=== PATIENT | male | born 1970 | race Caucasian/White ===

== ENCOUNTER 2021-01-15 03:06 | Outpatient (CLI) | payer MEDICAID, SELFPAY ==
[2021-01-15 12:51] LABS: Calculated LDL 110 mg/dL (<100); Cholesterol 171 mg/dL (<200); HDL Cholesterol 40 mg/dL (40-60); Triglyceride 109 mg/dL (<150)
[2021-01-15 17:29] LABS: PSA, Screening 0.9 ng/mL (0.0-3.5)
== END 2021-01-15 03:07 | disposition home or self-care (01) ==
LOC: LOS 03:06
PROVIDERS: PCP Nurse Practitioner Family; Visit Provider Nurse Practitioner Family
DX: Z13.220 Encounter for screening for lipoid disorders (principal); Z13.1 Encounter for screening for diabetes mellitus; Z12.5 Encounter for screening for malignant neoplasm of prostate
CPT/HCPCS: 36415; 80061; 84153; 83036

== ENCOUNTER 2022-12-21 07:44 | Day surgery (SDC) | payer MEDICAID, SELFPAY ==
--- NOTE | 2022-12-20 17:22 | ANES.PREOP_ITS ---
General Info Date of Service Date Performed: 12/21/22 Height: 5 ft 8 in Weight: 96.162 kg Body Mass Index (BMI): 32.2 Surgical Procedure: Operation Date: 12/21/22 09:05 Proposed Procedure Side Surgeon p Joseph Frausto MD Meds Allergies and Home Medications Allergies Allergy/AdvReac Type Severity Reaction Status Date / Time amoxicillin Allergy Intermediate rash Verified 12/18/22 13:58 Home Medication Medication Instructions Recorded folic acid 1 mg tablet 1 mg PO DAILY 06/05/15 methotrexate sodium 2.5 mg tablet 6 tab PO ONCE A WEEK 06/05/15 hydroxychloroquine 200 mg tablet 200 mg PO BID 01/27/16 prednisone 1 mg tablet 1 mg PO DAILY 05/28/21 sildenafil 25 mg tablet (Viagra) 25 mg PO DAILY PRN sexual activity 11/30/22 #3 tabs Current Visit Medications: Current Medications Generic Name Dose Route Start Last Admin Trade Name Freq PRN Reason Stop Dose Admin Ringer's Solution 1,000 mls @ 80 mls/hr 12/21/22 06:00 IV 01/17/23 23:59 INFUSION INGE IV Miscellaneous Supplies 1 each 12/21/22 06:00 Iv Access IV 01/17/23 23:59 DIRECTED INGE Sodium Chloride 0 ml 12/21/22 06:00 Normal Saline Flush 10 Ml Syr IV 01/17/23 23:59 PRN PRN Sodium Chloride 0 ml 12/21/22 06:00 Normal Saline 10 Ml Vial IJ 01/17/23 23:59 DIRECTED PRN Sterile Water 0 ml 12/21/22 06:00 Water,Injection,Sterile 10 Ml Vial IJ 01/17/23 23:59 DIRECTED PRN PFSH Active Problems Active Problems: Problem Status Onset Code Screening for colon cancer Z12.11 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 Onychomycosis B35.1 Skin lesion L98.9 Erectile disorder due to medical condition in male N52.1 Rheumatoid arthritis M06.9 Medical History Medical History Genital warts (01/27/16) Tinea versicolor (06/05/15) Tobacco Smoking/Tobacco Use Status: Former Tobacco Use Passive smoking exposure: Yes Second hand exposure: Yes Alcohol Alcohol Intake: current Alcohol intake frequency: a few times a month Alcohol type: hard liquor Substance Use Substance use: Never Substance use type: does not use Vital Signs and Lab Results Vital Signs Most Recent Vital Signs in EMR: Temp Pulse Resp BP Pulse Ox 36.3 C L 73 18 128/91 H 98 12/21/22 07:56 12/21/22 07:56 12/21/22 07:56 12/21/22 07:56 12/21/22 07:56 Lab Results Blood Type / Crossmatch: No Data to Display Complete Blood Count: No Data to Display Complete Metabolic Panel: No Data to Display Liver Function Panel: No Data to Display Coagulation Panel: No Data to Display Cardiac Panel: No Data to Display Arterial Blood Gas: No Data to Display Venous Blood Gas: No Data to Display Pancreas Panel: No Data to Display Thyroid Panel: No Data to Display Infectious Disease: No Data to Display Blood Cultures: No Data to Display Toxicology Panel: No Data to Display Anesthesia Assessment and Plan Anesthesia History Personal History: No History of Anesthesia Complications Family History: No Family History of Anesthesia Complications Exercise Tolerance Exercise Tolerance: Metabolic Equivalents>4 Cardiac & Pulmonary Exam Cardiac Exam: Normal S1/S2 Heart Sounds Pulmonary Exam: Clear Bilateral Breath Sounds Implantable Cardiac Device Does patient have a Pacemaker or an ICD?: No Airway Exam Known Difficult Airway: No Mallampati Class: 2 Mouth Opening: Normal (> 3cm) Thyromental Distance: Greater than 3 cm Neck Range of Motion: Full ROM Neck Circumference: Normal Teeth Condition: Normal Dentition ASA Classification ASA Score: ASA 2 Emergency Case?: No NPO Status NPO Status: NPO Clears >2 hours, Solids >8 hours Anesthesia Plan Resuscitation Status: Full Code Anesthesia Technique: General Anesthesia Airway Planned: Natural Airway Monitors Used: Standard Monitors Preoperative Comments:: 52 yo male for screening colo. Sig PMHx: RA (followed at [facility] [place], methotrexate, plaquenil. Occupational predisone last a year or more), former smoker, occ EtOH.
--- NOTE | 2022-12-20 20:16 | W.PM.DSUDISC ---
Date of service: 12/21/22 Time of Service: 08:50 Discharge Plan Disposition Patient Disposition: Home Condition: Good Discharge Details Reason For Visit: Screening colonoscopy Attending Provider: Hood Frausto Primary Care Provider: Sav Mcekon Home Meds and New Rx's Prescriptions: Continued prednisone 1 mg tablet 1 mg PO DAILY methotrexate sodium 2.5 MG tablet 6 tab PO ONCE A WEEK folic acid 1 MG tablet 1 mg PO DAILY hydroxychloroquine 200 MG tablet 200 mg PO BID Rx Instructions: [facility] [place] sildenafil [Viagra] 25 mg tablet 25 mg PO DAILY PRN (Reason: sexual activity) Qty: 3 10RF Rx Instructions: administer 30 minutes to 4 hours before activity Discontinued bisacodyl [Dulcolax (bisacodyl)] 5 mg tablet,delayed release (DR/EC) 5 mg PO ONCE Qty: 4 0RF Rx Instructions: Take according to provider's instructions for colonoscopy prep. polyethylene glycol 3350 17 gram/dose powder 17 g PO ONCE Qty: 238 0RF Rx Instructions: To be taken as directed by prescriber's office for colonoscopy prep. Discharge Instructions Instructions: Colorectal Polyps (GEN) Additional Instructions: Robbie, we were able to complete your colonoscopy today without any difficulty. I found and removed 4 polyps. All were small, and I believe I removed them all completely. I will notify you when I have the pathology report on what types of polyps these are. 1. If tolerated, consume a soft, low fiber diet for 1-2 days. 2. Do not drive, drink alcohol, operate machinery, make critical decisions, or do activities that require coordination or balance for 24 hours. 3. Because air was put into your colon during the procedure, expelling air from your rectum (passing gas or farting) is normal. 4. You may not have a bowel movement for 1-3 days because of the colonoscopy prep. This is normal. 5. Go directly to the emergency room if you notice any of the following: Develop chills (warm to touch), or if you have a thermometer and your temperature is above 101 Difficulty breathing or difficultly swallowing Persistent vomiting Severe abdominal pain, other than gas cramps Severe chest pain Black, tarry stools Any bleeding ? exceeding one tablespoon 6. Call your physician if the site where your intravenous was started becomes red, swollen, painful, and warm to touch. 7. Your physician has reviewed your pre-procedure medications. Please continue to take those medications as previously ordered. You will be given specific information/education regarding any changes to your medications before leaving. Activity:: Activity as Tolerated Diet:: As Tolerated Discharge Orders Discharge Orders: Discharge Order (Routine); Ordered 12/20/22 Ordered By: Hood Frausto DS: Diagnosis Discharge Diagnosis (1) Screening for colon cancer: Status: Acute Asessment and Plan: Follow-up on polypectomy results
--- NOTE | 2022-12-20 20:18 | W.COLOREPORT ---
Date of service: 12/21/22 Time of Service: 08:52 Colonoscopy Report Date of procedure: 12/21/22 Pre-op diagnosis general: Screening colonscopy Post-op diagnosis procedure note: other (Colon polyps) Procedure: Colonoscopy with polypectomy Surgeon: Hood Frausto Anesthesia Type: General:No Airway Estimated blood loss (mL): 15 Pathology: other (Polyps at 75 cm x2, 65 cm, and 45 cm) Complications: None Disposition: same day Indications: Robbie is 52 years old and he is in need of a screening colonoscopy Prep: Miralax/Dulcolax Procedure Start Time: 08:27 Procedure End Time: 08:42 Retraction Time: 9 Findings: 2 sessile polyps at 75 cm, 1 polyp at 65 cm, 1 polyp at 45 cm Procedure Description: After the induction of monitored anesthetic care, and with the patient in left lateral decubitus position, I began by performing an external anorectal exam.? Perineum and skin were normal, as was the anal verge.? There was no evidence of external hemorrhoids.? Next, I performed a digital rectal exam.? I did not appreciate any abnormal findings.? Next, I advanced a colonoscope into the rectal vault.? I performed retroflexion.? This was normal.? Using insufflation, I then advanced the colonoscope beyond the rectal folds and into the sigmoid colon before advancing towards the cecum.? The quality of the prep was excellent.? The scope was noted to be in the cecum by identification of the ileocecal valve and appendiceal orifice.? I then began withdrawing the colonoscope using repeated irrigation as necessary for full evaluation of the colonic mucosa. At 75 cm, I identified two 0.25 cm polyps. Both were sessile. I removed both with cold forceps polypectomy and there was minimal bleeding. Similarly, at 65 cm from the anal verge I identified another polyp that was 0.5 cm in size. This was also sessile. This was also removed with cold forceps. Around 45 cm from the anal verge I identified a 0.75 cm polyp. ?It appeared pedunculated in character. ?I was able to remove this with a cold snare polypectomy. ?I examined the site, and there was minimal bleeding. ?Once this was completed, I continued to withdraw the scope and examine the remainder of the colonic mucosa. Once the scope was withdrawn to the level of the rectum, great care was taken to examine portions of the rectal folds.? Finally, the scope was withdrawn and the patient was brought to the same-day surgery recovery unit as the anesthetic wore off. ?The findings and instructions were shared with the patient prior to discharge.
[2022-12-21 07:56] VITALS: BP 128/91; PULSE 73; RESP 18; TEMP 36.3; O2SAT 98
[2022-12-21 08:13] VITALS: BMI 32.2
[2022-12-21] MEDS: Lactated Ringers 1,000 ML 80 ML IV (08:17)
--- NOTE | 2022-12-21 08:31 | BOWEL_PTH ---
PATIENT: Robbie Mcmanus LOC: [facility] U#:[id number] AGE/SX: 52/M ROOM: RE12/21/[address]: Hood Frausto MD : 1970 BED: DIS: 12/21/2022 SPEC #: [id number] RECD: 12/21/22 11:34 STATUS: ALEJANDRO RE #: [id number] CARMENCITA: 12/21/22 08:[address]: Hood Frausto DEPT: Surgical Specimen RECD BY: Judie Ng ENTERED: 12/21/22 11:35 SP TYPE: Bowel OTHR DR: Sav Mckeon, [employer] Tissues: 1 - BIOPSY BOWEL 2 - BIOPSY BOWEL 3 - BIOPSY BOWEL Procedures: GROSS AND MICRO LEVEL 4 Comments: [id number]
[2022-12-21 08:46] VITALS: BP 113/79; PULSE 75; RESP 16; TEMP 36.6; O2SAT 97
[2022-12-21 09:15] VITALS: BP 123/91; PULSE 65; RESP 16; TEMP 36.6; O2SAT 98
--- NOTE | 2022-12-21 09:52 | W.ANESPOSTOP ---
Postoperative Evaluation Date, Time and Location Date Performed: 12/21/22 Time Performed: 09:15 Patient Location: Day Surgery Unit Vital Signs Most Recent Imported Vital Signs: Most Recent Vital Signs Temp Pulse Resp BP Pulse Ox 36.6 C 65 16 123/91 H 98 12/21/22 09:15 12/21/22 09:15 12/21/22 09:15 12/21/22 09:15 12/21/22 09:15 Pain Score Most Recent Pain Score: Most Recent Pain Score Pain Level 0 12/21/22 09:15 Assessment Mental Status: Awake (Alert & Oriented to Patient Baseline) Airway and Respiratory Function: Patent airway with normal (patient baseline) respiratory exam Cardiovascular Function: Hemodynamically Stable Hydration Status: Adequately Hydrated Nausea & Vomiting: No Nausea or Vomiting Pain: Pt. Denies Any Pain Peripheral Nerve Block: Patient did not receive a nerve block
== END 2022-12-21 09:22 | disposition home or self-care (01) ==
PROVIDERS: PCP Nurse Practitioner Family; Visit Provider Surgery
PROC: 0DJD8ZZ Inspection of Lower Intestinal Tract, Via Natural or Artificial Opening Endoscopic (ICD-10-PCS; CPT 45378; principal; 2022-12-21 09:00)
DX: Z12.11 Encounter for screening for malignant neoplasm of colon (principal); K63.5 Polyp of colon
CPT/HCPCS: 45385; 45380; 88305

== ENCOUNTER 2024-06-23 08:21 | Emergency (ER) | payer MEDICAID, SELFPAY ==
[2024-06-23 08:24] VITALS: BP 149/96; PULSE 70; RESP 14; TEMP 36.9; O2SAT 96
[2024-06-23 08:27] VITALS: BP 149/96; PULSE 70; RESP 14; TEMP 36.9; O2SAT 96
--- NOTE | 2024-06-23 08:31 | W.ED.GENAD ---
Discharge Plan Disposition Patient Disposition: Home Condition: Stable Discharge Details Clinical Impression: Left ureteral stone Primary Care Provider: Sav Mckeon ED Provider: Kash Bazzi Home Meds and New Rx's Prescriptions: New ondansetron 4 mg tablet,disintegrating 4 mg PO Q8H PRNQty: 30 0RF tamsulosin 0.4 mg capsule 0.4 mg PO DAILY Qty: 30 0RF Continued prednisone 1 mg tablet 1 mg PO DAILY Patient Comments: Per patient- not currently using but has the prescription just in case methotrexate sodium 2.5 MG tablet 6 tab PO ONCE A WEEK folic acid 1 MG tablet 1 mg PO DAILY hydroxychloroquine 200 MG tablet 200 mg PO BID Rx Instructions: [facility] [place]ildenafil [Viagra] 25 mg tablet 25 mg PO DAILY PRN (Reason: sexual activity) Qty: 3 10RF Rx Instructions: administer 30 minutes to 4 hours before activity Discharge Instructions Instructions: Ondansetron, Tamsulosin, Kidney Stone, Adult ED Additional Instructions: You were seen in the emergency department for your various abdominal pain, you have a small kidney stone stuck in your left ureter at this time, it appears to be small enough to pass, we provided you with aggressive hydration which you need to continue at home. I sent to some dissolvable tablets for nausea due to pain, I sent you a prescription for tamsulosin which dilates your urinary system to allow the stone to easier pass, he cannot take NSAIDs due to your methotrexate and hydroxychloroquine use-please take 1000 mg of Tylenol every 6 hours. Please return to the emergency department for severe increase in chills and fever despite Tylenol use, intractable nausea and vomiting, weakness, fast heart rate, complete urinary obstruction/retention. Referrals: [facility] [Provider Group] Sav Mckeon, FI[employer]OR [Primary Care Provider] - Discharge Data Discharge Date/Time-TO BE ENTERED AT DEPARTURE: 06/23/24 13:08 HPI General Date/Time Provider Initiated Documentation: 06/23/24 08:31. HPI Narrative: 53 year-old male presents to ED today by POV/ambulating with a chief complaint of abdominal pain, L-sided, some loose stools, difficulty urinating, chills/sweats with onset over the past 4-5 days. Patient states his spouse has C. difficile and is on her last day of oral ABX. Quality described as generalized fatigue, cramping, diarrhea, no radiation to chest pain, shortness of breath, dizziness, black/bloody diarrhea, intractable nausea/vomiting. Severity is described as moderate. Palliating factors include nothing specific attempted. Provoking factors include nothing specific. Events leading up to the incident/Associated Symptoms: Patient did spend 1 hour in the bathroom immediately after triage. Patient not anticoagulated. Related Data Home Medications ?Medication ?Instructions ?Recorded ?Confirmed folic acid 1 mg tablet 1 mg PO DAILY 06/05/15 06/23/24 methotrexate sodium 2.5 mg tablet 6 tab PO ONCE A WEEK 06/05/15 06/23/24 hydroxychloroquine 200 mg tablet 200 mg PO BID 01/27/16 06/23/24 prednisone 1 mg tablet 1 mg PO DAILY 05/28/21 06/23/24 sildenafil 25 mg tablet (Viagra) 25 mg PO DAILY PRN sexual activity 04/07/24 06/23/24 #3 tabs ondansetron 4 mg disintegrating 4 mg PO Q8H PRN #30 tabs 06/23/24 tablet tamsulosin 0.4 mg capsule 0.4 mg PO DAILY #30 caps 06/23/24 Previous Rx's ?Medication ?Instructions ?Recorded sildenafil 25 mg tablet (Viagra) 25 mg PO DAILY PRN sexual activity 04/07/24 #3 tabs ondansetron 4 mg disintegrating 4 mg PO Q8H PRN #30 tabs 06/23/24 tablet tamsulosin 0.4 mg capsule 0.4 mg PO DAILY #30 caps 06/23/24 Allergies Allergy/AdvReac Type Severity Reaction Status Date / Time amoxicillin Allergy Intermediate rash Verified 06/23/24 08:29 General Stated Complaint: Nausea/Vomit/Diar MONICA: 4 Review of Systems All systems reviewed & are unremarkable except as noted in HPI and below Exam Narrative Exam Narrative: GENERAL APPEARANCE: Well-nourished, non-toxic, awake and alert, atraumatic, no acute distress. SKIN: Warm, pink, dry, intact, without rashes/lesions/ulcerations. HEAD: Normocephalic, atraumatic, normal hair distribution for gender/age. EYES: Normal conjunctiva, no exudates on lids/lashes. ENT: Nares patent, no circumoral cyanosis, no facial swelling NECK: Supple, trachea midline, painless cervical ROM. LUNGS/CHEST: Lungs CTA bilaterally, non-labored respirations, normal A/P diameter, symmetrical expansion, no chest wall deformity HEART (CV/PV): Regular rate and rhythm without murmur, no peripheral edema, no JVD. ABDOMEN: Soft, non-distended, no guarding, mild left-sided abdominal tenderness without CVA tenderness to percussion bilaterally, no peritoneal signs or Rovsing's or rebound tenderness, negative Berrios sign. MSK: Normal ROM, no swelling/deformity to bilateral UEs or LEs, moving all extremities without weakness, no cyanosis, spine midline without tenderness, normal curvature. NEURO: Mental Status AAOx4 - alert to person, place, time, events No facial droop, no forehead involvement. Motor: No focal weakness - strength 5/5 in bilateral UEs and LEs, proximal and distal, symmetric. Sensory: sensation intact to light touch globally. Gait normal: patient ambulated without ataxia into ED room. PSYCH: euthymic, cooperative, pleasant, appropriate speech Course Vital Signs Vital signs: Vital Signs Temperature 36.9 C 06/23/24 08:24 Pulse 70 06/23/24 08:24 Respiratory Rate 14 06/23/24 08:24 Blood Pressure 149/96 H 06/23/24 08:24 Pulse Oximetry 96 06/23/24 08:24 Temperature 36.9 C 06/23/24 08:27 Temperature Source Temporal Artery Scan 06/23/24 08:27 Pulse 70 06/23/24 08:27 Respiratory Rate 14 06/23/24 08:27 Respiratory Effort Normal 06/23/24 08:27 Blood Pressure 149/96 H 06/23/24 08:27 Blood Pressure Position Sitting 06/23/24 08:27 Pulse Oximetry 96 06/23/24 08:27 Oxygen Delivery Method Room Air 06/23/24 08:27 Oxygen Flow Rate 0 06/23/24 08:27 Pain Level 7 06/23/24 08:27 Medical Decision Making This dictation utilizes [id number] dictation software and may contain unedited grammatical errors. 53 year-old male presents to ED today by POV/ambulating with a chief complaint of abdominal pain, L-sided, some loose stools, difficulty urinating, chills/sweats with onset over the past 4-5 days. Patient states his spouse has C. difficile and is on her last day of oral ABX. Quality described as generalized fatigue, cramping, diarrhea, no radiation to chest pain, shortness of breath, dizziness, black/bloody diarrhea, intractable nausea/vomiting. Severity is described as moderate. Palliating factors include nothing specific attempted. Provoking factors include nothing specific. Events leading up to the incident/Associated Symptoms: Patient did spend 1 hour in the bathroom immediately after triage, does take methotrexate. Patients' medical history: Rheumatoid arthritis. Family and social history: States his spouse has C. difficile but is finishing antibiotics today. Pertinent exam findings / vital signs include mild left-sided abdominal pain without rebound tenderness, no Berrios sign, benign cardiopulmonary status, nontoxic and afebrile. Differential / pathologies of concern include colitis, UTI, pyelonephritis, renal colic, gastritis, BPH w obstruction, diarrhea, gastroenteritis, electrolyte imbalance, diverticulitis, unlikely mesenteric ischemia Diagnostic studies of: -CBC, CMP, CRP/ESR, lipase, magnesium, C. difficile PCR, lactoferrin and PCR, ova and parasites, fecal bacterial culture, lactate, CT ABD/pelvis W contrast. -CBC shows no leukocytosis, no anemia -Lactate negative -CMP unremarkable -Lipase negative -CRP and ESR negative -UA shows large blood in the urine -CT shows a 4 mm left renal stone at the UVJ, likely source of patient's pain -Sent home with stool collection kit for reassurance with his close contact having active C. difficile, but I do not suspect infectious diarrhea at this time Interventions of: -1L IVF, 1g IV APAP, 4mg IV Zofran. -Additional liter IVF, 0.4 mg tamsulosin ED Course/Assessment/Plan: 53-year-old male presents with left and lower abdominal pain, some stool abnormalities with bloody stool and some discomfort with urination and pressure. Suspect ongoing for a few days now as partner does have active C. difficile. He was found to have a 4 mm renal stone at the UVJ on the left side with no concerns for sepsis or infected kidney stone at this time, will likely pass with Flomax and I did provide prescription for this as well as ondansetron for nausea and counseled on aggressive hydration, strict return criteria for any worsening abdominal pain especially with urinary retention and fever and developing nausea or weakness or other symptoms. Findings not consistent with infected kidney stone, obstructive uropathy, sepsis, infectious diarrhea, inflammatory colitis. Disposition of left ureteral stone. Patient verbalized understanding of the plan and return to ED criteria and engaged in shared decision making. Medical Records Medical records reviewed: Yes I reviewed the patient's medical records. Imaging Data Radiologic Study: Attestation: I personally reviewed and interpreted this imaging study as follows: Imaging: CT Scan Radiologist's impression: EXAM: CT ABDOMEN PELVIS W CLINICAL HISTORY: LLQ tenderness. TECHNIQUE: Imaging Protocol: Axial computed tomography images with coronal and sagittal reformatted images were created and reviewed CONTRAST MATERIAL: Intravenous: Omnipaque 350 Contrast volume:85 ml Oral: no COMPARISON: No exams were available for comparison FINDINGS: ABDOMEN and PELVIS: Lung Bases: Atelectasis and dependent changes. Liver: [id number] hepatic steatosis. No suspicious mass. Gallbladder and biliary tract: Gallbladder somewhat contracted. No radiodense calculus. No biliary dilation. Pancreas: Normal density. No abnormal calcifications or inflammatory process. No evidence of mass. Spleen: Normal. Kidneys: Normal size, contour and axis. 3 x 4 millimeter stone at the left ureteral vesicle junction causing mild hydronephrosis. Mild delay and left nephrogram. Two additional small nonobstructing stones are noted at the lower pole of the left kidney. No right-sided calculi are seen. No suspicious masses seen. Adrenal glands: No masses seen. Vasculature: Abdominal aorta non-dilated. Soft tissues: Unremarkable. Bladder: No gross wall thickening. No calculi.No focal mass. Bowel: No obstruction. No bowel wall thickening. Appendix normal. Normal quantity of stool. Peritoneal cavity: No ascites. No focal collection. No mesenteric inflammatory response. Bones: Unremarkable for age. Reproductive organs: Unremarkable. Lymph nodes: No pathologically enlarged lymph nodes. IMPRESSION:: 4 millimeter stone left ureterovesical junction causing mild left hydronephrosis. Two additional nonobstructing stone lower pole left kidney. Lab Data Lab results reviewed: Yes I reviewed the patient's lab results. Labs: Laboratory Tests Range/Units 06/23/24 06/23/24 08:40 09:50 WBC (4.4-10.8) 10^3/uL 6.50 RBC (4.36-5.78) 10^6/uL 4.98 Hgb (13.5-17.5) g/dL 15.4 Hct (40.0-50.0) % 45.1 MCV (80-95) fL 91 MCH (27.0-33.0) pg 30.9 MCHC (32.0-36.0) % 34.1 RDW (11.8-14.1) % 13.0 Plt Count (130-400) 10^3/uL 186 MPV (8.0-11.0) fL 10.2 Immature Gran % % 0.5 Neutrophils % % 67.6 Lymphocytes % % 24.0 Monocytes % % 5.7 Eosinophils % % 1.4 Basophils % % 0.8 Nucleated RBC % (0.0-0.3) % 0.0 Absolute Neutrophils (1.2-6.7) 10^3/uL 4.40 Absolute Lymphocytes (1.2-3.4) 10^3/uL 1.56 Absolute Monocytes (0.1-0.8) 10^3/uL 0.37 Absolute Eosinophils (0.0-0.7) 10^3/uL 0.09 Absolute Basophils (0.0-0.2) 10^3/uL 0.05 ESR (0-20) mm/hr 2 VBG Lactate (0.6-1.4) mmol/L 1.2 Sodium (136-145) mmol/L 143 Potassium (3.5-5.1) mmol/L 4.0 Chloride (98-107) mmol/L 107 Carbon Dioxide (21.0-32.0) mmol/L 26.5 Anion Gap (3-11) mmol/L 9.5 BUN (7-18) mg/dL 15 Creatinine (0.70-1.30) mg/dL 1.3 Est GFR (CKD-EPI 2020) (mL/min/1.73m2) 65.28 Glucose (74-106) mg/dL 115 H Calcium (8.5-10.1) mg/dL 9.3 Magnesium (1.8-2.4) mg/dL 2.2 Total Bilirubin (0.2-1.0) mg/dL 0.50 AST (15-37) U/L 34 ALT (16-63) U/L 55 Alkaline Phosphatase (46-116) U/L 95 C-Reactive Protein (<or=0.5) mg/dL 0.56 H Total Protein (6.4-8.2) g/dL 7.7 Albumin (3.4-5.0) g/dL 4.2 Lipase (16-77) U/L 26 Urine Color (Yellow) Yellow Urine Clarity (Clear) Clear Urine pH (5-8) 5.5 Ur Specific [place] (1.005-1.025) >= 1.030 H Urine Protein (Neg-Trace) mg/dL Negative Urine Ketones (Negative) mg/dL Trace H Urine Blood (Negative) Large H Urine Nitrite (Negative) Negative Urine Bilirubin (Negative) Negative Urine Urobilinogen (Up to 0.2) mg/dL 0.2 Ur Leukocyte Esterase (Negative) Negative Urine RBC (0-2) HPF 20-50 H Urine WBC (0-5) HPF 0-2 Ur Epithelial Cells (Negative) HPF Rare Urine Crystals (Negative) HPF Negative Urine Bacteria (Negative) HPF Few Urine Casts (Negative) LPF Negative Urine Mucus (Negative) Negative Ur Culture Indicated? No Urine Glucose (Negative) mg/dL Negative Quality:SDOH Health Related Social Needs: No Data to Display PFSH All Active Problems (Updated 06/23/24 @ 11:57 by RAFAL Dickerson) Left ureteral stone (Acute) Actinic keratosis (Acute) Rosacea (Acute) Tubular adenoma (Acute ~12/2022) Tubulovillous adenoma (Acute ~12/2022) Onychomycosis (Acute) Skin lesion (Acute) Face Erectile disorder due to medical condition in male (Acute) Rheumatoid arthritis (Chronic) Dr. Dwayne Thomas at [facility] Medical History Tinea versicolor (06/05/15) Genital warts (01/27/16) Surgical History History of colonoscopy with polypectomy (~12/2022) Social History Smoking/Tobacco Use Status: Former Tobacco Use tobacco type: cigarettes Quit Date: 10/04/18 Tobacco: How many years used: 30 Second Hand Exposure: Yes Smoking risk assessment performed?: Yes Alcohol Intake: current Alcohol Intake frequency: a few times a month Alcohol type: wine Drug use: Never Substance use type: does not use Caregiver/Support person: No Household members: none Housing: house Communication Needs: Corrective Lenses Do you need help understanding health information?: Rarely Pets and animals: No Sexually active: Yes Do you think of yourself as: straight/heterosexual Current gender identity: male What is your relationship status?: How often do you talk on the phone with friends or family?: twice per week How often do you get together with friends or relatives?: once per week How often do you attend presybeterian or scientologist services?: decline to answer Do you belong to any clubs or organized social groups?: no Panel score (0-1 are the most socially isolated patients): 1 What type of physical activity do you participate in: walking Duration: > 90 minutes/day Frequency: daily Marely/Congregation: No preference Special marely needs: No Seatbelt use: sometimes Helmet use: Yes Helmet use: always Drive intox or ride w/intox [employer] delivery driver: No Do you feel safe at home: Yes Do you feel safe in your relationship?: Yes PAWSS Have you Been Recently Intoxicated or Drunk Within the Last 30 days?: No Have you Ever Experienced Previous Episodes of Alcohol Withdrawal?: No Have you ever Experienced Withdrawal Seizures?: No Have you ever Experienced Delirium Tremens(DT)s?: No Have you ever undergone Alcohol Rehabilitation Treatment (i.e, inpt ot outpatient treatment programs)?: No Have you ever Experienced Blackouts?: No Have you ever Combined Alcohol with other Downers within the last 90 days?: No Have you ever Combined Alcohol with any other Substance of Abuse during the last 90 days?: No Result: 0
[2024-06-23 09:18] LABS: Bilirubin Negative (Negative); Blood Large (Negative); Clarity Clear (Clear); Glucose Negative (Negative); Ketones Trace mg/dL (Negative); Leukocyte Esterase Negative (Negative); Nitrite Negative (Negative); Specific Gravity >= 1.030 (1.005-1.025); Urobilinogen 0.2 mg/dL (Up to 0.2); pH 5.5 (5-8)
[2024-06-23 09:26] LABS: Bacteria Few HPF (Negative); C & S Indicated? No; Casts Negative LPF (Negative); Crystals Negative HPF (Negative); Epithelial Cells Rare HPF (Negative); Mucus Negative (Negative); RBC 20-50 HPF (0-2); WBC 0-2 HPF (0-5)
[2024-06-23] MEDS: Normal Saline 1,000 ML 1000 ML IV ×2 (09:58→11:57)
[2024-06-23] MEDS: Ondansetron 4 MG/2 ML VIAL IVP (09:58)
[2024-06-23] MEDS: ACETAMINOPHEN 1,000 MG/100 ML BTL 400 MG IVPB (09:58)
[2024-06-23 10:02] LABS: Abs Immature Grans 0.03 10^3/uL (0.0-0.06); Absolute Basophil Count 0.05 10^3/uL (0.0-0.2); Absolute Eosinophil Count 0.09 10^3/uL (0.0-0.7); Absolute Lymphocyte Count 1.56 10^3/uL (1.2-3.4); Absolute Monocyte Count 0.37 10^3/uL (0.1-0.8); Basophils % 0.8 %; Eosinophils % 1.4 %; HCT 45.1 % (40.0-50.0); HGB 15.4 g/dL (13.5-17.5); Immature Grans % 0.5 %; MCH 30.9 pg (27.0-33.0); MCHC 34.1 % (32.0-36.0); MCV 91 fL (80-95); MPV 10.2 fL (8.0-11.0); Monocytes % 5.7 %; Neutrophils % 67.6 %; Platelet Count 186 10^3/uL (130-400); RBC 4.98 10^6/uL (4.36-5.78); RDW-SD 42.6 fL
[2024-06-23 10:03] LABS: ESR 2 mm/hr (0-20)
[2024-06-23 10:07] LABS: Lactate 1.2 mmol/L (0.6-1.4)
[2024-06-23 10:23] LABS: ALT 55 U/L (16-63); AST 34 U/L (15-37); Albumin 4.2 g/dL (3.4-5.0); Alkaline Phosphatase 95 U/L (46-116); Anion Gap 9.5 mmol/L (3-11); BUN 15 mg/dL (7-18); C-Reactive Protein 0.56 mg/dL (<or=0.5); CO2 26.5 mmol/L (21.0-32.0); CREATININE 1.3 mg/dL (0.70-1.30); Calcium 9.3 mg/dL (8.5-10.1); Chloride 107 mmol/L (98-107); Estimated GFR 65.28 (mL/min/1.73m2); Glucose 115 mg/dL (74-106); Lipase 26 U/L (16-77); Magnesium 2.2 mg/dL (1.8-2.4); Sodium 143 mmol/L (136-145); Total Protein 7.7 g/dL (6.4-8.2)
[2024-06-23] MEDS: Omnipaque 350 MG/ML 500 ML BTL-Imaging package 85 ML IJ (10:36)
[2024-06-23] MEDS: Normal Saline - Diluent 50 ML VIAL IJ (10:38)
--- NOTE | 2024-06-23 10:45 | DI.CT_ITS ---
Exam(s) CT ABDOMEN PELVIS W EXAM: CT ABDOMEN PELVIS W CLINICAL HISTORY: LLQ tenderness. TECHNIQUE: Imaging Protocol: Axial computed tomography images with coronal and sagittal reformatted images were created and reviewed CONTRAST MATERIAL: Intravenous: Omnipaque 350 Contrast volume:85 ml Oral: no COMPARISON: No exams were available for comparison FINDINGS: ABDOMEN and PELVIS: Lung Bases: Atelectasis and dependent changes. Liver: [id number] hepatic steatosis. No suspicious mass. Gallbladder and biliary tract: Gallbladder somewhat contracted. No radiodense calculus. No biliary dilation. Pancreas: Normal density. No abnormal calcifications or inflammatory process. No evidence of mass. Spleen: Normal. Kidneys: Normal size, contour and axis. 3 x 4 millimeter stone at the left ureteral vesicle junction causing mild hydronephrosis. Mild delay and left nephrogram. Two additional small nonobstructing s tones are noted at the lower pole of the left kidney. No right-sided calculi are seen. No suspiciou s masses seen. Adrenal glands: No masses seen. Vasculature: Abdominal aorta non-dilated. Soft tissues: Unremarkable. Bladder: No gross wall thickening. No calculi.No focal mass. Bowel: No obstruction. No bowel wall thickening. Appendix normal. Normal quantity of stool. Peritoneal cavity: No ascites. No focal collection. No mesenteric inflammatory response. Bones: Unremarkable for age. Reproductive organs: Unremarkable. Lymph nodes: No pathologically enlarged lymph nodes. IMPRESSION:: 4 millimeter stone left ureterovesical junction causing mild left hydronephrosis. Two additional nonobstructing stone lower pole left kidney. RADIATION DOSE DELIVERED: 431.45mGy.cm Total DLP DATA REPOSITORY: All CT scans at this facility are submitted to the National Radiology Data Registry (NRDR) Dose Index Registry (DIR) with the [employer] (A[employer]). RADIATION OPTIMIZATION: All CT scans at this facility use at least one of these dose optimization te chniques: automated exposure control; mA and/or kV adjustment per patient size (includes targeted exa ms where dose is matched to clinical indication); or iterative reconstruction.
[2024-06-23] MEDS: Tamsulosin 0.4 MG CAPCR PO (11:56)
[2024-06-23 13:06] VITALS: BP 129/79; PULSE 69; RESP 18; O2SAT 96
== END 2024-06-23 13:08 | disposition home or self-care (01) ==
PROVIDERS: Emergency Provider Physician Assistant; PCP Nurse Practitioner Family
DX: N13.2 Hydronephrosis with renal and ureteral calculous obstruction (principal); Z87.891 Personal history of nicotine dependence
CPT/HCPCS: 36415; 80053; 83690; 85652; 96361; 96374; 96375; 99285; 74177; 81003; 81015; 83605; 83735; 85025; 86140; 99284; J0131; J2405

== ENCOUNTER 2024-06-29 15:33 | Outpatient (REF) | payer MEDICAID, SELFPAY ==
[2024-06-29 12:57] LABS: C Diff PCR Negative (Negative)
[2024-06-29 23:37] LABS: Campylobacter PCR Negative (Negative); Salmonella PCR Negative (Negative); Shiga Toxin PCR Negative (Negative); Shigella/Enteroinvasive Ecoli Negative (Negative)
== END 2024-06-29 15:34 | disposition home or self-care (01) ==
LOC: LBN 15:33
PROVIDERS: PCP Nurse Practitioner Family; Visit Provider Physician Assistant
DX: R19.7 Diarrhea, unspecified (principal)
CPT/HCPCS: 87493; 87505; 83630; 87177